=== PATIENT | female | born 1995 | race Caucasian/White ===

== ENCOUNTER 2016-12-02 13:40 | Emergency (ER) | payer OTHER ==
[2016-12-02] MEDS ORDERED: MOTRIN 600 MG PO ONE (14:18)
--- NOTE | 2016-12-02 14:21 | ERPHSYRPT ---
- History of Present Illness Time Seen by Provider: 12/02/16 14:16 Source: patient Patient Subjective Stated Complaint: PT REPORTS ATTEMPTING TO JUMP ONTO PORCH 2 NIGHTS AGO ET MISSING-REPORTS PAIN ET SWELLING TO RIGHT FOOT-DENIES NUMBNESS OR TINGLING Triage Nursing Assessment: PT PINK WARM ET INV-[id number] FOOT SWOLLEN-RED- PULSES PRESENT-PT AMBULATORY WITH A LIMP Physician History: CC: right foot pain Hx: 21 y/o patient of Dr Soler states was running Friday (2 days ago) and she twisted right foot. No other injries. It is now more painful and bruised. Took Motrin yest. Current normal menses and has implants. No neck or back pain. Occurred: days ago (2) Severity of Pain-Max: moderate Severity of Pain-Current: moderate Allergies/Adverse Reactions: No Known Drug Allergies Allergy (Verified 12/02/16 13:52) Hx Tetanus, Diphtheria Vaccination/Date Given: Yes Hx Influenza Vaccination/Date Given: Yes (2015) Hx Pneumococcal Vaccination/Date Given: No Immunizations Up to Date: Yes - Review of Systems Constitutional: No Symptoms Abdominal/Gastrointestinal: No Nausea, No Vomiting Musculoskeletal: Joint Pain (right foot), No Back Pain, No Neck Pain Neurological: No Focal Weakness, No Headache, No Parasthesia - Past Medical History Pertinent Past Medical History: Yes Neurological History: No Pertinent History ENT History: No Pertinent History Cardiac History: No Pertinent History Respiratory History: Asthma Endocrine Medical History: No Pertinent History Musculoskeletal History: No Pertinent History GI Medical History: No Pertinent History History: No Pertinent History Psycho-Social History: Depression Female Reproductive Disorders: No Pertinent History - Past Surgical History Past Surgical History: No Neuro Surgical History: No Pertinent History Cardiac: No Pertinent History Respiratory: No Pertinent History Gastrointestinal: No Pertinent History Genitourinary: No Pertinent History Musculoskeletal: No Pertinent History Female Surgical History: No Pertinent History - Social History Smoking Status: Never smoker Exposure to second hand smoke: No Drug Use: none Patient Lives Alone: No Significant Family History: no pertinent family hx - Female History Hx Last Menstrual Period: CURRENTLY Hx Now: No - Nursing Vital Signs Nursing Vital Signs: Initial Vital Signs Temperature 98.9 F 12/02/16 13:49 Pulse Rate 81 12/02/16 13:49 Respiratory Rate 20 12/02/16 13:49 Blood Pressure 157/87 12/02/16 13:49 O2 Sat by Pulse Oximetry 98 12/02/16 13:49 Pain Scale Pain Intensity 1 - Physical Exam General Appearance: alert Eyes, Ears, Nose, Throat Exam: moist mucous membranes Neck Exam: supple Cardiovascular/Respiratory Exam: regular rate/rhythm Neuro/Tendon Exam: normal sensation, normal motor functions Mental Status Exam: alert, oriented x 3, cooperative Skin Exam: warm, dry SpO2: 98 Oxygen Delivery: Room Air Comments: right foot has some tender, swelling, bruising. Skin intact. Good DP pulse. [place] skin. No ankle, knee, or hip tenderness. - Radiology Exams right foot X-ray Interpretation: Interpreted by me (partially displaced 5th MT midshaft fx) Ordered Tests: Active Orders 24 hr Category Date Time Status Heraclio Bandage Application -[facility] STAT Care 12/02/16 14:38 Active Cold Application STAT Care 12/02/16 14:18 Active Crutches STAT Care 12/02/16 14:38 Active Splint STAT Care 12/02/16 14:38 Active FOOT (MINIMUM 3 VIEWS) Stat Exams 12/02/16 14:18 Taken Medication Summary Discontinued Medications Generic Name Dose Route Start Last Admin Trade Name Jpq PRN Reason Stop Dose Admin Ibuprofen 600 mg 12/02/16 14:18 12/02/16 14:28 Motrin 600 Mg PO 12/02/16 14:19 600 mg STAT ONE Administration Ibuprofen Confirm 12/02/16 14:27 Motrin 600 Mg Administered 12/02/16 14:28 Dose 600 mg .ROUTE .STK-MED ONE - Progress Progress Note: 12/02/16 14:41 Pt wants to follow up locally with Dr Alvarez. Will release with inst. Counseled pt/family regarding: diagnosis, need for follow-up, rad results - Departure Time of Disposition: 14:41 Departure Disposition: Home Clinical Impression: Fracture of fifth metatarsal bone of right foot Qualifiers: Encounter type: initial encounter Fracture type: closed Fracture alignment: displaced Qualified Code(s): S92.351A - Displaced fracture of fifth metatarsal bone, right foot, initial encounter for closed fracture Condition: Stable Critical Care Time: No Referrals: LEOLA SOLER [Primary Care Provider] - MAXIMUS ALVAREZ [ACTIVE STAFF] - Instructions: Foot Fracture, Use Crutches Additional Instructions: Heraclio, darco shoe, crutches with no weight bearing. Ice, rest, elevate. Rx norco for pain. No driving today or while taking. Call Dr Alvarez in AM to be seen this week. Call Dr Soler if any problems with appointment. CRUTCHES 1. Hold your head up and keep your back straight to help keep your balance. 2. When standing, the top of the crutches should fit 2-3 inches below your armpits. 3. Put your weight on the handgrip with your hands; never put any pressure on your armpits. 4. Go slow until you get your balance and become accustomed to crutch walking. 5. Place each crutch tip 4-6 inches to the front and side of each foot. Move both crutch tips forward on each side 12-15 inches from the tip of your injured leg, while simultaneously moving your injured leg 12-15 inches. Move your uninjured leg forward to the level of the crutch tips. Prescriptions: Hydrocodone/APAP 5/325 [[place] 5/325 mg] 1 each PO Q4-6HPRN PRN #20 tablet PRN Reason: Pain
[2016-12-02] MEDS ORDERED: MOTRIN 600 MG ONE (14:27)
[2016-12-02 15:03] VITALS: BP 132/77; PULSE 80; O2SAT 97
--- NOTE | 2016-12-02 21:15 | XRAY ---
Indication: Pain after jumping. Comparison: June 08, 2013. 3 nonweightbearing views of the right foot now demonstrates mildly displaced 5th metatarsal shaft oblique fracture with soft tissue swelling. No other bony, articular, or soft tissue abnormalities.
== END 2016-12-02 15:03 | disposition home or self-care (01) ==
LOC: ED 13:40
DX: S92.351A Displaced fracture of fifth metatarsal bone, right foot, initial encounter for closed fracture (principal); X50.0XXA Overexertion from strenuous movement or load, initial encounter; Y93.02 Activity, running
CPT/HCPCS: 73630; 99283; A9270-GY

== ENCOUNTER 2016-12-10 08:26 | Day surgery (SDC) | payer OTHER ==
[2016-12-10] MEDS ORDERED: Zofran 4 MG/2 ML VIAL IV ONE (08:27)
[2016-12-10] MEDS ORDERED: MORPHINE SULFATE 10 MG/ML IV ONE (08:27)
[2016-12-10] MEDS ORDERED: DIPRIVAN 200 MG/20 ML IV ONE (08:27)
[2016-12-10] MEDS ORDERED: SUBLIMAZE 100 MCG/2 ML IV ONE ×3 (08:27→14:18)
[2016-12-10] MEDS ORDERED: TORAdol 30 mg Injection IJ ONE (08:27)
[2016-12-10] MEDS ORDERED: Decadron 4 MG INJ IV ONE (08:27)
[2016-12-10] MEDS ORDERED: Versed 2 MG/2 ML Injection IV ONE (08:27)
[2016-12-10] MEDS ORDERED: Lactated Ringers 1,000 ML IV SCH (09:00)
[2016-12-10] MEDS ORDERED: CEFAZOLIN 2 GM-D5W BAG** 2 GM/50 ML ML IV SCH (09:30)
[2016-12-10] MEDS ORDERED: Lactated Ringers 1,000 ML IV ONE ×2 (09:31→11:02)
[2016-12-10] MEDS ORDERED: CEFAZOLIN 2 GM-D5W BAG** 2 GM/50 ML ML IV ONE (10:08)
[2016-12-10] MEDS ORDERED: Marcaine 0.5% SDV 10 ML ONE (11:02)
--- NOTE | 2016-12-10 13:27 | OP ---
SURGERY DATE/TIME: 12/10/2016 1145 PREOPERATIVE DIAGNOSIS: Unstable fracture right fifth metatarsal. POSTOPERATIVE DIAGNOSIS: Unstable fracture right fifth metatarsal. PROCEDURES: 1) Open reduction internal fixation of right fifth metatarsal with locking plate Corbin. 2) X-ray per surgeon. 3) Short leg cast. SURGEON: Daniel Rosa D.O. MICROBIOLOGY PROFESSOR: None. ANESTHESIA: General per [employer]AG [employer]AMER. ESTIMATED BLOOD LOSS: Minimal. DESCRIPTION OF PROCEDURE: The patient is taken to the operative suite and placed in supine position, given general anesthetic. Tourniquet applied, inflated, exsanguinated. Sterile prep and drape done. Incision made across the glabrous skin entry point on the fifth metatarsal down to the bone periosteum. The fracture was identified, opened up, cleaned and then aligned. Under x-ray guidance clamped and held the plate was affixed and multiple holes with a small modified mini-frag less than one-third tubular size was placed and then fully threaded small screws placed distally and proximally. Two holes to each side and then a bicortical fixation. Small degree of Vitoss from the Corbin system less than 5 cc and then wounds were irrigated with saline, closed with interrupted 2-0 Monocryl and arleth in the skin. Xeroform, 4x4 and sterile dressings applied. Final x-rays looked appropriate. Short leg cast applied. The patient was sent onto to recovery in satisfactory condition.
[2016-12-10] MEDS ORDERED: SUBLIMAZE 100 MCG/2 ML ONE (13:29)
--- NOTE | 2016-12-10 13:38 | XRAY ---
Indication: Right foot ORIF surgery. Intraoperative fluoroscopy was provided for 2 minutes 42 seconds. 2 digital spot images submitted for interpretation demonstrates lateral fixation plate and 7 screws fixating 5th metatarsal shaft fracture. Apposition/alignment improved with respect to December 02, 2016 radiograph. Correlate with intraoperative findings/report.
[2016-12-10] MEDS ORDERED: MORPHINE SULFATE 10 MG/ML ONE (13:44)
[2016-12-10] MEDS ORDERED: Hydromorphone 1 mg/ml Ampule IV ONE (14:17)
[2016-12-10] MEDS ORDERED: DILAUDID 2 MG INJECTION ONE (14:19)
[2016-12-10] MEDS ORDERED: DILAUDID 2 MG INJECTION IV ONE (14:45)
[2016-12-10 15:00] VITALS: PULSE 86
[2016-12-10 15:26] VITALS: BP 124/68; O2SAT 97
--- NOTE | 2016-12-10 16:38 | XRAY ---
2 minutes and 42 seconds fluoroscopy time in surgery for ORIF right foot.
== END 2016-12-10 15:30 | disposition home or self-care (01) ==
LOC: SDC 08:26
PROVIDERS: ATTEND Orthopaedic Surgery
PROC: 0QSN04Z Reposition Right Metatarsal with Internal Fixation Device, Open Approach (ICD-10-PCS; principal; 2016-12-10)
DX: S92.351A Displaced fracture of fifth metatarsal bone, right foot, initial encounter for closed fracture (principal)
CPT/HCPCS: 01480; 73620; 76000; J0690; J1100; J1170; J1885; J2250; J2270; J2405; J2704; J3010